=== PATIENT | female | born 1950 | race Caucasian/White ===

== ENCOUNTER 2016-09-10 21:05 | Emergency (ER) | payer MEDICARE ==
--- NOTE | 2016-09-10 22:26 | ERNOTE ---
Upper Extremity HPI - General Extremities Pain Location: shoulder: right Time Seen by Provider: 09/10/16 22:21 Source: family Exam Limitations: dementia - Immun/Allergies/Home Medications Immunizations: IMMUNIZATION HX Immunizations Up to Date Yes History of Influenza Vaccine No Hx Pneumococcal Vaccination No Allergies/Adverse Reactions: Allergies Allergy/AdvReac Type Severity Reaction Status Date / Time codeine Allergy Other Verified 09/10/16 21:31 Home Medications: HOME MEDICATIONS Benazepril HCl 20 mg PO DAILY 09/10/16 [Last Taken Unknown] Donepezil HCl [Aricept] 10 mg PO DAILY 09/10/16 [Last Taken Unknown] Memantine HCl [Namenda Xr] 28 mg PO DAILY 09/10/16 [Last Taken Unknown] Verapamil HCl 80 mg PO DAILY 09/10/16 [Last Taken Unknown] HYDROcodone/ACETAMINOPHEN [Lorcet 5-325 mg Tablet] 1 each PO QID PRN #20 tablet 09/11/16 [Last Taken Unknown] - History of Present Illness Narrative: Pt fell [facility] and has right shoulder pain and reduced ROM. Fall was unwitnessed and pt is a poor historian. No history available from the [facility]. Occurred: just prior to arrival Location of Incident: other - jail Severity: severe Method of Injury: Reports: fell Loss of Consciousness: Reports: unsure Modifying Factors - (Improves): Reports: immobilization Modifying Factors - (Worsens): Reports: movement Other Injuries: Reports: none Review of Systems - Narrative Narrative: jail and family state she has not had symptoms lately - Review of Systems Musculoskeletal: Present: See HPI - Patient's Past Medical History Patient History - Medical: Alzheimer's Disease, Dementia Patient History - Cardiac/Respiratory: No pertinent hx Patient History - Surgical Procedures: Cholecystectomy - Social History Living Situations: senior care Abuse History: No History of abuse Psych History: No pertinent hx Smoking Status: Never smoker Alcohol Use: none Drug Use: none - Immunizations Immunizations Up to Date: Yes Hx Pneumococcal Vaccination: No History of Influenza Vaccine: No Physical Exam - Physical Exam General Appearance: Present: wd/wn, mild distress Ears, Nose, Throat: Present: normal ENT inspection Neck: Present: normal inspection, nontender, supple Respiratory: Present: no respiratory distress, normal breath sounds, chest nontender, lungs clear Cardiovascular/Chest: Present: regular rate, rhythm, no murmur, normal peripheral pulses Gastrointestinal/Abdominal: Present: normal bowel sounds, nontender Back Exam: Present: normal inspection, normal range of motion, no vertebral tenderness Extremity Exam: Present: normal except - - right shoulder has reduced ROM, less than 90 degree abduction active or passively Neurological Exam: Present: alert, 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 by me X-ray Comments: Initial AP x-ray of right shoulder show overlapped proximal humerus fracture with no angulation. Y view showed angulation of the proximal humerus at approx 45 degrees lateral. Repeat AP showed 30 degree angulation with continued overlap. - Progress/Reassessment Chief Complaint: Shoulder Injury/Pain Progress Note-Subjective: 09/11/16 00:[address] Schmidt at 23:50. He requests shoulder immobilizer and have the family or NH call the clinic in the am for follow up. Departure Clinical Impression: Fracture, humerus, anatomical neck Qualifiers: Encounter type: initial encounter Fracture type: closed Laterality: right Qualified Code(s): S42.291A - Other displaced fracture of upper end of right humerus, initial encounter for closed fracture - Departure Disposition: Home Follow Up Needed Condition: Good Instructions: Humerus Fracture Treated With Immobilization Additional Instructions: keep immobilizer on until seen by orthopedics. Use pain medications as needed. Call the orthopedics clinic in the morning to set up a follow up visit Referrals: Logan Schmidt MD [Staff Physician] - Prescriptions: HYDROcodone/ACETAMINOPHEN [Lorcet 5-325 mg Tablet] 1 each PO QID PRN #20 tablet PRN Reason: Pain
[2016-09-10] MEDS ORDERED: PROMETHAZINE HCL 25 MG/ML AMPUL ONE (22:33)
[2016-09-10] MEDS ORDERED: NALBUPHINE HCL 20 MG/ML AMPUL ONE (22:33)
[2016-09-10] MEDS ORDERED: NALBUPHINE HCL 20 MG/ML AMPUL IM ONE (22:36)
[2016-09-10] MEDS ORDERED: PROMETHAZINE HCL 25 MG/ML AMPUL IM ONE (22:37)
[2016-09-10 22:50] LABS: Hematocrit 36.8 % (37.0-47.0); Mean Cell Volume 94.4 fl (78-100); Mean Corpuscular Hemoglobin 30.8 pg (27-31); Mean Corpuscular Hgb Conc 32.6 g/dl (32-36); Mean Platelet Volume 9.3 fl (6.0-9.5); Neutrophil # 12.2 K/mm3 (1.3-6.0); Neutrophil % 78.4 % (42-75.0); Platelet Count 316 K/mm3 (150-450); Red Cell Distribution Width 12.3 % (11.5-14.0); White Blood Count 15.6 K/mm3 (4.0-10.5)
[2016-09-10 22:52] LABS: Albumin * 3.8 gm/dl (3.4-5.0); Anion Gap 10.7 mmol/L (6.8-13.8); BUN/Creatinine Ratio 32.5 (9.0-21.6); Bilirubin, Total 0.3 mg/dL (0.0-1.1); Ca. Corrected For Albumin 9.8 mg/dL (8.4-10.2); Carbon Dioxide 29.7 mmol/L (24-32.6); Potassium 4.4 mmol/L (3.4-4.6); Total Protein 7.1 gm/dL (6.2-8.2)
[2016-09-11 00:16] VITALS: BP 135/62
== END 2016-09-11 00:16 | disposition home or self-care (01) ==
LOC: ER 21:05
PROC: 2W3AX1Z Immobilization of Right Upper Arm using Splint (ICD-10-PCS; principal; 2016-09-10)
DX: S42.291A Other displaced fracture of upper end of right humerus, initial encounter for closed fracture (principal); W19.XXXA Unspecified fall, initial encounter; Y92.129 Unspecified place in nursing home as the place of occurrence of the external cause; G30.9 Alzheimer's disease, unspecified; F02.80 Dementia in other diseases classified elsewhere, unspecified severity, without behavioral disturbance, psychotic disturbance, mood disturbance, and anxiety